=== PATIENT | female | born 1975 | race Caucasian/White ===

== ENCOUNTER → 2018-06-05 11:25 | Outpatient (CLI) | payer OTHER, SELFPAY ==
--- NOTE | 2018-06-05 | DI.RAD.S_ITS ---
PROCEDURE: XR SHOULDER LT MIN 2V INDICATIONS: PAIN IN LEFT SHOULDER TECHNIQUE: 3 views of the shoulder were acquired. COMPARISON: [facility], , SHOULDER MINIMUM 2VIEW RIGHT, 12/12/2012, 17:14. FINDINGS: Bones: No fractures or dislocations. No suspicious bony lesions. Visualized ribs appear intact. Left-sided subclavian Port-A-Cath crosses the midline. Soft tissues: No suspicious soft tissue calcifications. IMPRESSION: Source of pain at the left shoulder is not seen. Port-A-Cath from a left-sided approach crosses the midline. Dictated by: Nino Rodriguez M.D. on 06/05/2018 at 12:31 Approved by: Nino Rodriguez M.D. on 06/05/2018 at 12:32
== END ==
PROVIDERS: PCP Orthopaedic Surgery; Visit Provider Orthopaedic Surgery
DX: M25.512 Pain in left shoulder (principal); Z95.828 Presence of other vascular implants and grafts
CPT/HCPCS: 73030

== ENCOUNTER 2018-06-26 18:41 | Emergency (ER) | payer OTHER, SELFPAY ==
[2018-06-26 18:55] VITALS: BP 128/90; PULSE 69; RESP 16; TEMP 37.3; O2SAT 98; BMI 28.0
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
[2018-06-26 20:28] VITALS: BP 127/87; PULSE 65; TEMP 36.7; O2SAT 100
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
[2018-06-26 21:40] VITALS: BP 131/84; PULSE 62; RESP 16; TEMP 36.8; O2SAT 98
== END 2018-06-26 21:44 | disposition home or self-care (01) ==
PROVIDERS: Emergency Provider Nurse Practitioner Family; PCP Orthopaedic Surgery
DX: S80.11XA Contusion of right lower leg, initial encounter (principal); W22.8XXA Striking against or struck by other objects, initial encounter
CPT/HCPCS: 73590; 99282; 99283

== ENCOUNTER → 2018-07-22 18:12 | Outpatient (CLI) | payer OTHER, SELFPAY | PROVIDERS: PCP Orthopaedic Surgery; Visit Provider Orthopaedic Surgery | DX: M25.512 Pain in left shoulder (principal); Z53.9 Procedure and treatment not carried out, unspecified reason ==

== ENCOUNTER → 2018-07-29 18:17 | Outpatient (CLI) | payer OTHER, SELFPAY ==
--- NOTE | 2018-07-29 18:21 | DI.MRI.S_ITS ---
PROCEDURE: MR SHOULDER LT WO CON INDICATIONS: LEFT SHOULDER PAIN TECHNIQUE: Noncontrast oblique coronal T2 fast spin echo with fat saturation, oblique sagittal T1 spin echo and T2 fast spin echo with fat saturation, axial T1 spin echo and T2 fast spin echo with fat saturation through the shoulder. COMPARISON: [facility], CR, XR SHOULDER LT MIN 2V, 06/05/2018, 11:07. FINDINGS: Image quality: Excellent. Rotator cuff: There is mild fluid signal intensity within the bursal surface of the posterior supraspinatus and anterior tendons at the musculotendinous junctions, consistent with low-grade partial-thickness bursal surface tears. The supraspinatus, infraspinatus, and subscapularis tendons otherwise appear intact throughout. Sagittal images demonstrate a no muscle atrophy. Bones and bursae: No bone marrow contusions nor acute fractures. There is indentation of the posterior lateral humeral head. Mild acromioclavicular joint degeneration. The acromion demonstrates conventional anatomy, without an os acromiale. No pathologic subacromial-subdeltoid or subcoracoid bursal fluid is present. Capsule and soft tissues: Linear and amorphous high signal intensity traverse the inferior, anteroinferior, anterior, and anterosuperior labrum. The long head of the biceps tendon demonstrates normal location and morphology. The rotator interval appears normal, without fibrosis. The coracohumeral ligament is normal in thickness. IMPRESSION: 1. Low-grade partial-thickness bursal surface tears of the supraspinatus and infraspinatus tendons as above. No full-thickness rotator cuff tear. 2. Mild acromioclavicular joint arthritis. 3. Chronic Hill-Sachs deformity of the humeral head, indicating remote anteroinferior shoulder dislocation. 4. Labral tearing. Dictated by: Antoinette Garcia M.D. on 07/30/2018 at 9:40 Approved by: Antoinette Garcia M.D. on 07/30/2018 at 9:43
== END ==
PROVIDERS: PCP Orthopaedic Surgery; Visit Provider Orthopaedic Surgery
DX: M25.512 Pain in left shoulder (principal); M75.112 Incomplete rotator cuff tear or rupture of left shoulder, not specified as traumatic; M19.012 Primary osteoarthritis, left shoulder; S43.492A Other sprain of left shoulder joint, initial encounter
CPT/HCPCS: 73221

== ENCOUNTER → 2018-12-04 15:45 | Outpatient (CLI) | payer OTHER, SELFPAY ==
--- NOTE | 2018-12-04 | DI.CT.S_ITS ---
PROCEDURE: CT FACIAL BONES WO CON INDICATIONS: Chronic sinusitis, unspecified TECHNIQUE: Noncontrast 2.5 mm thick axial images acquired from the mandible through the frontal sinuses, with coronal and sagittal reformatting. For radiation dose reduction, the following was used: automated exposure control, adjustment of mA and/or kV according to patient size. COMPARISON: [facility], CT, SINUS SCREEN WO CONTRAST, 09/15/2014, 7:40. [facility], CR, SINUSES MINIMUM 3 VIEWS, 08/18/2014, 9:38. [facility], CT, FACIAL BONES WO CONTRAST, 04/08/2010, 14:00. FINDINGS: Image quality: Excellent. Bones and teeth: Orbital monzon are intact. Sinus monzon show no fracture or deformity. Nasal bones and septum are intact. Visualized portions of the mandible demonstrate no fractures or subluxation. Zygomatic arches are intact. Pterygoid plates are intact. Visualized portions of the skull base and auditory canals are intact. Sinuses: Mucous retention cyst can be seen in the posterior aspects of the maxillary sinuses. Minimal mucosal thickening can be seen elsewhere within the paranasal sinuses. No nasal masses or nasal polyps can be seen. No abnormal fluid is seen within the mastoid air cells or within the middle ear cavities. Soft tissues: No edema, masses, or fluid collections. No enlarged lymph nodes. No soft tissue lacerations or debris. Vascular: Visualized vascular structures appear normal in the absence of contrast. Bony vascular foramina and canals are intact. IMPRESSION: No significant abnormality is seen to explain the patient's presenting history. No findings of nasal polyps or nasal masses are detected. Dictated by: Gabe Goel M.D. on 12/04/2018 at 15:25 Approved by: Gabe Goel M.D. on 12/04/2018 at 15:27
== END ==
PROVIDERS: Family Provider Otolaryngology; PCP Orthopaedic Surgery; Visit Provider Orthopaedic Surgery
DX: J32.9 Chronic sinusitis, unspecified (principal)
CPT/HCPCS: 70486

== ENCOUNTER 2018-12-09 11:08 | Emergency (ER) | payer OTHER, SELFPAY ==
[2018-12-09 11:17] VITALS: BP 129/91; PULSE 68; RESP 20; TEMP 36.3; O2SAT 100; BMI 30.4
--- NOTE | 2018-12-09 13:20 | ED.URI ---
HPI - URI/Sore Throat <Marie Mayen PA-C - Last Filed: 12/09/18 21:13> General Chief Complaint: Upper Respiratory Symptoms Stated Complaint: CONGESTION IN CHEST/HEAD Time Seen by Provider: 12/09/18 12:46 Source: patient Mode of arrival: ambulatory Limitations: no limitations History of Present Illness HPI Narrative: this 43-year-old female who was exposed to influenza last week complains of 4-5 day history of worse cough, aches, and fever up to 102 at home. She states that her chest has been getting more tight and she has had wheeze. She has chest pressure with trying to lie flat. She states that the cough proceeded all of that and she coughs all night. She states that she has occasionally needed nebulizer treatments in the past when she had bronchitis, no history of asthma. She states that she has also had headache and sinus pain with this. She denies any GI symptoms other known exposures or any other complaints on systems review. She states that she feels like her chest does clear with cough episodes. Related Data Home Medications Medication Instructions Recorded Confirmed CYCLOSPORINE (#RESTASIS 0.4 ML) 0.4 ml OP PRN #0 11/13/12 [BENLYSTA] INFU SEE INSTRUCTIONS #0 11/13/12 hydroxychloroquine 200 mg PO AMCC #0 11/13/12 levothyroxine [Levoxyl] 0.15 mg PO QDAY #0 11/13/12 naproxen sodium [Aleve] 220 mg PO #0 08/27/17 Previous Rx's Medication Instructions Recorded DIPHENOXYLATE/ATROPINE SULFATE 2 tab PO Q6HP PRN #16 tab 08/27/17 (DIPHENOXYLATE/ATROPINE) ciprofloxacin HCl [Cipro] 500 mg PO BID #10 tab 08/27/17 tramadol 0 tab PO Q6HP PRN #8 tab 08/27/17 albuterol sulfate 2 inhalation INHALATION Q4H PRN 12/09/18 #8.5 gram promethazine-codeine 5 ml PO Q4-6H PRN #118 ml 12/09/18 Allergies Allergy/AdvReac Type Severity Reaction Status Date / Time hydrocodone [HYDROCODONE] Allergy Mild ITCHY Verified 12/09/18 11:21 Review of Systems <Marie Mayen PA-C - Last Filed: 12/09/18 21:13> Review of Systems ROS Unobtainable: All systems reviewed & are unremarkable except as noted in HPI and below PFSH <Marie Mayen PA-C - Last Filed: 12/09/18 21:13> Medical History Lupus (Chronic) Minimal change disease (Chronic) Raynauds disease (Chronic) Rheumatoid arthritis (Chronic) Sjogrens syndrome (Chronic) Surgical History History of elbow surgery (Resolved) History of parotid gland excision (Resolved) Status post breast reduction (Resolved) Social History Smoking Status: Never smoker Social History Smoking Status: Never smoker Exam <Marie Mayen PA-C - Last Filed: 12/09/18 21:13> Narrative Exam Narrative: GENERAL APPEARANCE: Patient sitting comfortably, in no distress. HEAD: generalized sinus TTP. EYES: PERRL, EOMI. EARS: Normal auditory canals, TMS intact with normal light reflexes. ORAL CAVITY: Normal oropharynx. THROAT: erythematous with some PND, no exudate NECK/THYROID: Neck supple, full range of motion, shotty anterior cervical lymphadenopathy. LUNGS: Clear to auscultation bilaterally, hoarse cough on exam HEART: RRR without murmur, nl S1, S2, no S3 or S4. EXTREMITIES: No edema, no calf tenderness Initial Vital Signs Initial Vital Signs: Vital Signs Temperature 97.3 F L 12/09/18 11:17 Pulse Rate 68 12/09/18 11:17 Respiratory Rate 20 12/09/18 11:17 Blood Pressure 129/91 H 12/09/18 11:17 Pulse Oximetry 100 12/09/18 11:17 <Marely Machado DO - Last Filed: 12/10/18 12:17> Initial Vital Signs Initial Vital Signs: Vital Signs Temperature 97.3 F L 12/09/18 11:17 Pulse Rate 68 12/09/18 11:17 Respiratory Rate 20 12/09/18 11:17 Blood Pressure 129/91 H 12/09/18 11:17 Pulse Oximetry 100 12/09/18 11:17 Course <Marie Mayen PA-C - Last Filed: 12/09/18 21:13> Additional Information: patient is feeling improved after nebulizer treatments. She does have autoimmune disease but is outside of the treatment window for influenza. Will continue supportive treatment home including albuterol, and she agreed to return if any acutely worsening symptoms Orders Ordered: Discontinued Medications Albuterol (Ventolin) 2.5 mg INH NOW ONE Stop: 12/09/18 13:36 Last Admin: 12/09/18 13:50 Dose: 2.5 mg Albuterol/Ipratropium (Duoneb) 3 ml INH NOW ONE Stop: 12/09/18 13:36 Last Admin: 12/09/18 13:50 Dose: 3 ml Vital Signs - 8 hr 12/09/18 13:30 12/09/18 13:50 Temperature 97.7 F Pulse Rate 88 72 Respiratory Rate 21 16 Blood Pressure [Right Arm] 134/94 H Pulse Oximetry 98 <Marely Machado DO - Last Filed: 12/10/18 12:17> Orders Ordered: Discontinued Medications Albuterol (Ventolin) 2.5 mg INH NOW ONE Stop: 12/09/18 13:36 Last Admin: 12/09/18 13:50 Dose: 2.5 mg Albuterol/Ipratropium (Duoneb) 3 ml INH NOW ONE Stop: 12/09/18 13:36 Last Admin: 12/09/18 13:50 Dose: 3 ml Vital Signs - 8 hr 12/09/18 13:30 12/09/18 13:50 Temperature 97.7 F Pulse Rate 88 72 Respiratory Rate 21 16 Blood Pressure [Right Arm] 134/94 H Pulse Oximetry 98 MDM - URI/Sore Throat <Marie Mayen PA-C - Last Filed: 12/09/18 21:13> Lab Data Lab Results 12/09/18 Range/Units 11:42 Influenza A & B (PCR) Positive, type a A (Negative) <DO Caesar Up Last Filed: 12/10/18 12:17> Lab Data Lab Results 12/09/18 Range/Units 11:42 Influenza A & B (PCR) Positive, type a A (Negative) Discharge Plan Departure Patient Disposition: Home Clinical Impression: Influenza Exacerbation of reactive airway disease Qualifiers: Asthma severity: mild Asthma persistence: intermittent Qualified Code(s): J45.21 - Mild intermittent asthma with (acute) exacerbation Discharge Date/Time: 12/09/18 15:15 Interventions: ED Discharge Assessment Last Done: 12/09/18 15:14 Instructions: DI for Influenza -- Adult, DI for Reactive Airway Disease-Adult Activity Restrictions/Additional Instructions: please return as we talked about if you have any acutely worsening symptoms, i.e. more shortness of breath, high fever not responding to [id number] medicines etc. Please use the albuterol inhaler as often as you need for tight chest or breathing, and use the cough syrup to help with cough and sleep. You may want to try changing your antihistamine to Benadryl or Zyrtec to see if that is more helpful for your sinus drainage. You can also use pseudoephedrine to help with congestion ( all are [id number]). Please rest at home until you are feeling better. Prescriptions: New promethazine-codeine 6.25-10 mg/5 mL syrup 5 ml PO Q4-6H PRN (Reason: cough) Qty: 118 RF: 0 albuterol sulfate 90 mcg/actuation HFA aerosol inhaler 2 inhalation INHALATION Q4H PRN (Reason: tight chest/wheeze) Qty: 8.5 RF: 0 No Action CYCLOSPORINE (#RESTASIS 0.4 ML) 0.4 ml OP PRN Qty: 0 RF: 0 levothyroxine [Levoxyl] 175 MCG tablet 0.15 mg PO QDAY Qty: 0 RF: 0 hydroxychloroquine 200 MG tablet 200 mg PO AMCC Qty: 0 RF: 0 [BENLYSTA] INFU SEE INSTRUCTIONS Qty: 0 RF: 0 naproxen sodium [Aleve] 220 MG capsule 220 mg PO Qty: 0 RF: 0 ciprofloxacin HCl [Cipro] 500 MG tablet 500 mg PO BID Qty: 10 RF: 0 tramadol 50 MG tablet PO Q6HP PRNQty: 8 RF: 0 DIPHENOXYLATE/ATROPINE SULFATE (DIPHENOXYLATE/ATROPINE) 2 tab PO Q6HP PRNQty: 16 RF: 0 Referrals: Tae Jaime MD [Primary Care Provider] - <Marely Machado DO - Last Filed: 12/10/18 12:17> Cosign ED Attending Chasityature Attestation: I was immediately available in the department for consultation. Documentation has been reviewed. I agree with assessment and plan.
[2018-12-09 13:30] VITALS: BP 134/94; PULSE 88; RESP 21; TEMP 36.5
[2018-12-09 13:50] VITALS: PULSE 72; RESP 16; O2SAT 98
[2018-12-09] MEDS: ALBUTEROL/IPRATROPIUM 3 ML AMPUL INH (13:50)
[2018-12-09] MEDS: ALBUTEROL 2.5 MG/3 ML NEB (ADULT) INH (13:50)
== END 2018-12-09 15:15 | disposition home or self-care (01) ==
PROVIDERS: Emergency Medicine; Emergency Provider Internal Medicine; PCP Orthopaedic Surgery
DX: J11.1 Influenza due to unidentified influenza virus with other respiratory manifestations (principal); J45.21 Mild intermittent asthma with (acute) exacerbation
CPT/HCPCS: 36415; 87400; 94640; 99282; 99283; J7613

== ENCOUNTER → 2018-12-26 14:09 | Outpatient (REF) | payer OTHER, SELFPAY | LOC: LAB 14:09 | PROVIDERS: PCP Orthopaedic Surgery; Visit Provider Otolaryngology | DX: J01.91 Acute recurrent sinusitis, unspecified (principal); J34.89 Other specified disorders of nose and nasal sinuses; R51 Headache; R42 Dizziness and giddiness | CPT/HCPCS: 87070; 87077 ==

== ENCOUNTER → 2019-05-15 10:07 | Outpatient (CLI) | payer OTHER, SELFPAY ==
--- NOTE | 2019-05-15 | DI.US.S_ITS ---
PROCEDURE: US RENAL COMPLETE INDICATIONS: Pelvic pain, abdominal pain, possible urinary tract abnormality. TECHNIQUE: Real-time scanning was performed of the kidneys and bladder, with image documentation. COMPARISON: None. FINDINGS: Kidneys: Kidneys are normal in size. Right kidney measures 11.3 cm long; left kidney measures 11.6 cm long. Right renal cortical thickness is 2.6 cm; left renal cortical thickness is 1.5 cm. Renal cortical echotexture is normal. No hydronephrosis or nephrolithiasis. No suspicious solid mass lesions. Bladder: Pre-void bladder volume is 100 mL. Post-void residual is 0 mL. Pre-void images demonstrate no intraluminal masses or stones. On pre-void images, bilateral ureteral jets are noted with color Doppler interrogation. (Of note, ureteral jets may not be detectable in up to 25% of cases due to insufficient differences in specific gravity between ureteral and bladder urine). Miscellaneous: No free pelvic fluid. IMPRESSION: Normal urinary tract ultrasound. Normal bladder function. Source of pain is not found. Dictated by: Nino Rodriguez M.D. on 05/15/2019 at 12:12 Approved by: Nino Rodriguez M.D. on 05/15/2019 at 12:15
--- NOTE | 2019-05-15 | DI.US.S_ITS ---
PROCEDURE: US PELVIC COMPLETE INDICATIONS: PAIN TECHNIQUE: Real-time scanning was performed of the pelvic organs, with image documentation. Additional endovaginal scanning was necessary due to incomplete visualization of the adnexal and endometrial structures by transabdominal scanning. COMPARISON: None. FINDINGS: Transabdominal scanning: Limited scanning through the kidneys shows no hydronephrosis. No pathologic free abdominal or pelvic fluid. Endovaginal scanning: Uterus: Uterus is normal in size at 3.4 x 4.5 x 6.4 cm, anteverted. The endometrium contains a nodular mass measuring 5 x 6 x 7 mm, echogenic, in the fundal portion of the endometrial canal. The endometrium elsewhere appears normal. Ovaries: The ovaries bilaterally are well visualized and appear normal during up to 1.3 x 1.8 x 2.1 cm on the right and 1.5 x 1.8 x 1.8 cm on the left. 2 simple cysts are seen at the left ovary measuring up to 1.3 cm and 1.2 cm respectively. IMPRESSION: There is a echogenic ovoid mass at the endometrial canal, fundal region anteriorly, which measures up to 5 x 6 x 7 mm. This could represent an early manifestation of endometrial line or malignant neoplasm and may represent an endometrial polyp. Depending on the clinical status followup by sequential pelvic ultrasound or hysterosonography may be warranted. Gynecological consultation is recommended. Dictated by: Nino Rodriguez M.D. on 05/15/2019 at 14:26 Approved by: Nino Rodriguez M.D. on 05/15/2019 at 14:31
== END ==
PROVIDERS: PCP Family Medicine; Visit Provider Family Medicine
DX: R10.32 Left lower quadrant pain (principal); R10.2 Pelvic and perineal pain; N83.292 Other ovarian cyst, left side; N85.9 Noninflammatory disorder of uterus, unspecified
CPT/HCPCS: 76770; 76830; 76856

== ENCOUNTER → 2019-12-25 17:30 | Outpatient (CLI) | payer OTHER, SELFPAY ==
[2019-12-25 18:22] LABS: Influenza A - CEPHEID Flu A NEGATIVE (NEGATIVE); Influenza B - CEPHEID Flu B NEGATIVE (NEGATIVE)
[2020-01-01 05:40] LABS: COVID19 Sendout Not Detected (Not Detected)
== END ==
PROVIDERS: PCP Family Medicine; Visit Provider Nurse Practitioner
DX: R68.89 Other general symptoms and signs (principal)
CPT/HCPCS: 87502; DELETED

== ENCOUNTER → 2020-05-19 09:50 | Outpatient (CLI) | payer OTHER, SELFPAY ==
--- NOTE | 2020-05-19 09:52 | DI.RAD.S_ITS ---
PROCEDURE: XR FOOT RT MIN 3V INDICATIONS: Pain in right ankle and joints of right foot TECHNIQUE: 3 views of the foot were acquired. COMPARISON: None. FINDINGS: Bones: No fractures or dislocations. No suspicious bony lesions. Soft tissues: No tibiotalar joint effusion. Achilles tendon appears normal. IMPRESSION: Normal for age, source of current current pain symptoms is not seen. Dictated by: Nino Rodriguez M.D. on 05/19/2020 at 10:55 Approved by: Nino Rodriguez M.D. on 05/19/2020 at 10:56
--- NOTE | 2020-05-19 09:52 | DI.RAD.S_ITS ---
PROCEDURE: XR ANKLE RT MIN 3V INDICATIONS: Pain in right ankle and joints of right foot TECHNIQUE: 3 views of the ankle were acquired. COMPARISON: None. FINDINGS: Bones: No fractures or dislocations. Ankle mortise is normally aligned. No suspicious bony lesions. . Soft tissues: No tibiotalar joint effusion. Achilles tendon appears normal. IMPRESSION: No trauma found. No appreciable degenerative change Dictated by: Nino Rodriguez M.D. on 05/19/2020 at 10:20 Approved by: Nino Rodriguez M.D. on 05/19/2020 at 10:20
== END ==
PROVIDERS: PCP Family Medicine; Referring Provider Family Medicine; Visit Provider Family Medicine
DX: M25.571 Pain in right ankle and joints of right foot (principal)
CPT/HCPCS: 73610; 73630